=== PATIENT | male | born 1990 | race African-American/Black ===

== ENCOUNTER 2020-01-26 13:21 | Emergency (ER) | payer BC, SELFPAY ==
--- NOTE | 2020-01-26 13:50 | RAD ---
Exam: XR Hand Rt 3 View STANDARD HISTORY: Right hand pain and swelling. COMPARISON: None FINDINGS: A 7 mm cylindrical metallic density overlies the subcutaneous soft tissues dorsal to the medial carpa l bones related to metallic foreign body. A small rounded calcification is seen overlying the volar subcutaneous soft tissues dorsal to the distal right radial metaphysis. No acute fracture, dislocation, or other acute osseous abnormality is identified. IMPRESSION: 1. Metallic foreign body dorsal to the carpal bones within the subcutaneous soft tissues. 2. No acute osseous abnormality right hand.
== END 2020-01-26 14:02 | disposition home or self-care (01) ==
LOC: ERS 13:21
DX: S60.551A Superficial foreign body of right hand, initial encounter (principal); Z87.891 Personal history of nicotine dependence; W22.8XXA Striking against or struck by other objects, initial encounter